=== PATIENT | female | born 1965 | race Caucasian/White ===

== ENCOUNTER 2017-12-07 21:16 | Inpatient (IN) | payer OTHER ==
[2017-12-08 01:40] LABS: ADD MAN DIFF? NO
[2017-12-08 01:42] LABS: BASOPHIL # 0.1 10^3/ul (0.0-0.1); BASOPHILS % 0.4 % (0.0-2.0); EOSINOPHILS # 0.3 10^3/ul (0.0-0.5); EOSINOPHILS % 1.5 % (0.0-7.0); HEMATOCRIT 35.9 % (37.0-47.0); HEMOGLOBIN 12.4 g/dl (12.0-16.0); LYMPHOCYTES % 11.8 % (15.0-51.0); MEAN CORPUSCULAR HGB CONC 34.5 g/dl (32.0-37.0); MEAN CORPUSCULAR VOLUME 89.8 fl (82.0-101.0); MEAN PLATELET VOLUME 10.6 fl (7.4-10.4); MONOCYTE # 1.4 10^3/ul (0.3-0.9); MONOCYTES % 8.4 % (0.0-11.0); NEUTROPHILS % 77.2 % (39.0-77.0); PLATELET COUNT 404 10^3/UL (140-415); RED CELL DISTRIBUTION WIDTH 12.9 % (11.5-14.5)
[2017-12-08 01:42] LABS: WHITE BLOOD COUNT 16.8 10^3/ul (4.8-10.8)
[2017-12-08 02:04] LABS: ALANINE AMINOTRANSFERASE 27 IU/L (13-69); ALBUMIN 4.3 g/dl (3.3-4.9); ALBUMIN/GLOBULIN RATIO 1.07; ALKALINE PHOSPHATASE 116 IU/L (42-121); ANION GAP 13 (8-16); ASPARTATE AMINO TRANSFERASE 17 IU/L (15-46); BILIRUBIN,INDIRECT 0.6 mg/dl (0-1.1); BILIRUBIN,TOTAL 0.6 mg/dl (0.2-1.3); BLOOD UREA NITROGEN 17 mg/dl (7-20); CALCIUM 9.7 mg/dl (8.4-10.2); CARBON DIOXIDE 23 mmol/L (21-31); CHLORIDE 102 mmol/L (97-110); CREATININE 0.79 mg/dl (0.44-1.00); GLUCOSE 159 mg/dl (70-220); POTASSIUM 4.3 mmol/L (3.5-5.1); SODIUM 134 mmol/L (135-144); TOTAL PROTEIN 8.3 g/dl (6.1-8.1)
[2017-12-08 02:05] LABS: ACETAMINOPHEN < 10.0 ug/ml (10.0-30.0); ETHANOL < 10.0 mg/dl
[2017-12-08 02:39] LABS: URINE BLOOD (Dip) POC Negative (NEGATIVE); URINE GLUCOSE (Dip) POC Negative (NEGATIVE); URINE KETONES (Dip) POC Trace (NEGATIVE); URINE LEUKOCYTE EST (Dip) POC Negative (NEGATIVE); URINE NITRITE (Dip) POC Negative (NEGATIVE); URINE TOTAL PROTEIN POC 2+ (NEGATIVE)
[2017-12-08 02:39] LABS: URINE PH (Dip) POC 5.5 (5.0-8.5)
[2017-12-08 03:14] LABS: ADD UMIC YES; UR ASCORBIC ACID NEGATIVE (NEGATIVE); UR BILIRUBIN (Dip) NEGATIVE (NEGATIVE); UR BLOOD (Dip) NEGATIVE (NEGATIVE); UR CLARITY SLIGHTLY CLOUDY (CLEAR); UR COLOR AMBER (YELLOW); UR GLUCOSE (Dip) NEGATIVE (NEGATIVE); UR KETONES (Dip) NEGATIVE (NEGATIVE); UR LEUKOCYTE ESTERASE (Dip) NEGATIVE Leu/ul (NEGATIVE); UR MUCUS FEW /HPF (NONE SEEN); UR NITRITE (Dip) NEGATIVE (NEGATIVE); UR RBC 1 /HPF (0-5); UR SPECIFIC GRAVITY (Dip) 1.028 (1.003-1.030); UR SQUAMOUS EPITHELIAL CELL FEW /HPF (FEW); UR TOTAL PROTEIN (Dip) 2+ mg/dl (NEGATIVE); UR UROBILINOGEN (Dip) 2+ mg/dL (NEGATIVE); UR WBC 2 /HPF (0-5)
[2017-12-08] MEDS: ONDANSETRON 4 MG INJ IV ×2 (04:33→14:38)
[2017-12-08] MEDS: morphine 4 MG/ML VIAL IV (04:33)
[2017-12-08 04:39] LABS: BENZODIAZEPINES Positive (NEGATIVE); CANNABINOIDS Negative (NEGATIVE)
[2017-12-08 04:44] LABS: BARBITURATES Negative (NEGATIVE); COCAINE Negative (NEGATIVE); OPIATES Positive (NEGATIVE)
[2017-12-08 04:53] LABS: AMPHETAMINE/METHAMPHETAMINE POSITIVE (NEGATIVE)
[2017-12-08] MEDS: SOD CHLORIDE 0.9% 500 ML IV (04:59)
[2017-12-08] MEDS: HYDROmorphONE 1 MG/ML SYG IV (04:59)
[2017-12-08 05:24] LABS: INR 0.85; PROTIME 11.7 Sec (11.9-14.9); PT RATIO 0.9
[2017-12-08 05:25] LABS: PARTIAL THROMBOPLASTIN TIME 29.5 Sec (25.0-35.0)
[2017-12-08] MEDS ORDERED: HYDROCODONE/APAP (5/325) TAB PO ×2 (06:00)
[2017-12-08] MEDS ORDERED: NACL 0.9% 3 ML SYG IV (06:00)
[2017-12-08] MEDS ORDERED: ALBUTEROL/IPRATROPIUM (NEB) 3 ML AMP HHN (06:00)
[2017-12-08 06:17] LABS: LIPASE 243 U/L (23-300)
[2017-12-08 07:10] LABS: ALANINE AMINOTRANSFERASE 26 IU/L (13-69); ALBUMIN 3.5 g/dl (3.3-4.9); ALBUMIN/GLOBULIN RATIO 0.94; ALKALINE PHOSPHATASE 95 IU/L (42-121); ANION GAP 13 (8-16); ASPARTATE AMINO TRANSFERASE 15 IU/L (15-46); BILIRUBIN,INDIRECT 0.5 mg/dl (0-1.1); BILIRUBIN,TOTAL 0.5 mg/dl (0.2-1.3); BLOOD UREA NITROGEN 17 mg/dl (7-20); CALCIUM 8.8 mg/dl (8.4-10.2); CARBON DIOXIDE 22 mmol/L (21-31); CHLORIDE 104 mmol/L (97-110); CREATININE 0.76 mg/dl (0.44-1.00); GLUCOSE 127 mg/dl (70-220); POTASSIUM 4.3 mmol/L (3.5-5.1); SODIUM 135 mmol/L (135-144); TOTAL PROTEIN 7.2 g/dl (6.1-8.1)
[2017-12-08] MEDS: FUROSEMIDE 40 MG TAB PO (08:33)
[2017-12-08] MEDS: LISINOPRIL 10 MG TAB PO (08:33)
[2017-12-08] MEDS: LEVOFLOXACIN 500MG/D5W (PMX) 100 ML IVPB (08:34)
[2017-12-08] MEDS: FAMOTIDINE 20 MG TAB PO ×2 (08:35→20:46)
[2017-12-08] MEDS: morphine 2 MG INJ IV ×2 (10:08→15:23)
[2017-12-08] MEDS: LOSARTAN 25 MG TAB PO (20:46)
[2017-12-08] MEDS: ATORVASTATIN 20 MG TAB PO (20:46)
[2017-12-08] MEDS: QUETIAPINE 25 MG TAB PO (20:47)
[2017-12-08] MEDS: ACETAMINOPHEN 325 MG TAB PO (20:51)
[2017-12-08] MEDS ORDERED: D5W-0.45 NACL + KCL 20 MEQ 1,000 ML IV (22:00)
[2017-12-08] MEDS: D5W-0.45 NACL + KCL 20 MEQ 1,000 ML IV (23:56)
[2017-12-09] MEDS: morphine 2 MG INJ IV (03:54)
[2017-12-09 05:51] LABS: ADD MAN DIFF? NO
[2017-12-09 06:01] LABS: BASOPHIL # 0.1 10^3/ul (0.0-0.1); BASOPHILS % 0.7 % (0.0-2.0); EOSINOPHILS # 0.3 10^3/ul (0.0-0.5); EOSINOPHILS % 3.7 % (0.0-7.0); HEMATOCRIT 32.1 % (37.0-47.0); HEMOGLOBIN 10.5 g/dl (12.0-16.0); LYMPHOCYTES # 1.8 10^3/ul (0.8-2.9); LYMPHOCYTES % 22.6 % (15.0-51.0); MEAN CORPUSCULAR HEMOGLOBIN 30.2 pg (29.0-33.0); MEAN CORPUSCULAR HGB CONC 32.7 g/dl (32.0-37.0); MEAN CORPUSCULAR VOLUME 92.2 fl (82.0-101.0); MEAN PLATELET VOLUME 10.9 fl (7.4-10.4); MONOCYTES % 11.8 % (0.0-11.0); NEUTROPHIL # 4.9 10^3/ul (1.6-7.5); NEUTROPHILS % 60.5 % (39.0-77.0); PLATELET COUNT 318 10^3/UL (140-415); RED BLOOD COUNT 3.48 10^6/ul (4.20-5.40)
[2017-12-09 06:01] LABS: WHITE BLOOD COUNT 8.1 10^3/ul (4.8-10.8)
[2017-12-09 06:49] LABS: ANION GAP 12 (8-16); BLOOD UREA NITROGEN 16 mg/dl (7-20); CARBON DIOXIDE 26 mmol/L (21-31); CHLORIDE 103 mmol/L (97-110); CREATININE 0.95 mg/dl (0.44-1.00); GLUCOSE 129 mg/dl (70-220); MAGNESIUM 1.4 mg/dl (1.7-2.5); PHOSPHORUS 3.5 mg/dl (2.5-4.9); POTASSIUM 3.8 mmol/L (3.5-5.1); SODIUM 137 mmol/L (135-144)
[2017-12-09] MEDS: FAMOTIDINE 20 MG TAB PO (07:47)
[2017-12-09] MEDS: ASPIRIN (EC) 325 MG TAB PO ×3 (07:47→20:49)
[2017-12-09] MEDS: LEVOFLOXACIN 500MG/D5W (PMX) 100 ML IVPB (08:42)
[2017-12-09] MEDS: FUROSEMIDE 40 MG TAB PO (08:43)
[2017-12-09] MEDS: D5W-0.45 NACL + KCL 20 MEQ 1,000 ML IV (08:43)
[2017-12-09] MEDS: LOSARTAN 25 MG TAB PO ×2 (08:43→20:52)
[2017-12-09] MEDS ORDERED: EPINEPHrine 1 MG INJ (09:41)
[2017-12-09] MEDS ORDERED: NORepinephrine 8MG/250 ML (PMX 250 ML IV (11:00)
[2017-12-09] MEDS ORDERED: ONDANSETRON 4 MG INJ (11:04)
[2017-12-09] MEDS ORDERED: ROPIVACAINE 0.5 % 30 ML VIAL (11:04)
[2017-12-09] MEDS ORDERED: MIDAZOLAM 1 MG/ML 2 ML INJ (11:04)
[2017-12-09] MEDS ORDERED: METOCLOPRAMIDE 10 MG INJ (11:04)
[2017-12-09] MEDS ORDERED: FENTAnyl 50 MCG/ML VIAL (11:04)
[2017-12-09] MEDS ORDERED: ETOMIDATE 20 MG INJ (11:04)
[2017-12-09] MEDS ORDERED: morphine SULFATE/PF (10 MG/10 ML) INJ (11:16)
[2017-12-09] MEDS ORDERED: CEFAZOLIN 1 GM INJ (12:00)
[2017-12-09] MEDS: POLYMYXIN/BACITRACIN 1L IRRIG IRR (12:30)
[2017-12-09] MEDS ORDERED: KETOROLAC 30 MG INJ (12:41)
[2017-12-09] MEDS ORDERED: METOPROLOL 5 MG INJ (12:52)
[2017-12-09] MEDS ORDERED: HYDROmorphONE (0.2 MG/ML) 10ML SYG IV ×3 (13:00)
[2017-12-09] MEDS ORDERED: NALOXONE (0.4 MG/ML) INJ IV (13:30)
[2017-12-09] MEDS ORDERED: ZOLPIDEM 5 MG TAB PO (13:30)
[2017-12-09] MEDS ORDERED: NACL 0.9% 3 ML SYG IV (13:30)
[2017-12-09] MEDS: ONDANSETRON 4 MG INJ IV ×3 (13:30→20:52)
[2017-12-09] MEDS: DIPHENHYDRAMINE 50 MG INJ IV (13:52)
[2017-12-09] MEDS: MEPERIDINE 25 MG INJ IV (13:52)
[2017-12-09] MEDS: CEFAZOLIN 1 GM/50 ML (PMX) 50 ML IVPB ×2 (14:00→21:11)
[2017-12-09] MEDS: LORAZEPAM 2 MG INJ IV (14:01)
[2017-12-09] MEDS: MAGNESIUM SULFATE 3 GM in DEXTROSE 5% 100 ML IVPB (15:50)
[2017-12-09] MEDS: DOCUSATE SODIUM 100 MG CAP PO (15:51)
[2017-12-09] MEDS: SOD CHLORIDE 0.9% 1,000 ML IV (15:53)
[2017-12-09] MEDS: GABAPENTIN 100 MG CAP PO (20:49)
[2017-12-09] MEDS: QUETIAPINE 25 MG TAB PO (20:49)
[2017-12-09] MEDS: ATORVASTATIN 20 MG TAB PO (20:50)
[2017-12-09] MEDS: HYDROCODONE/APAP (5/325) TAB PO (21:10)
[2017-12-10] MEDS: D5W-0.45 NACL + KCL 20 MEQ 1,000 ML IV ×3 (00:10→16:00)
[2017-12-10] MEDS: ONDANSETRON 4 MG INJ IV ×2 (01:18→09:24)
[2017-12-10] MEDS: SOD CHLORIDE 0.9% 1,000 ML IV ×2 (01:18→14:05)
[2017-12-10] MEDS: morphine 2 MG INJ IV (05:57)
[2017-12-10] MEDS: PANTOPRAZOLE (EC) 40 MG TAB PO (05:59)
[2017-12-10] MEDS: CEFAZOLIN 1 GM/50 ML (PMX) 50 ML IVPB (06:00)
[2017-12-10 06:09] LABS: ADD MAN DIFF? NO
[2017-12-10 06:41] LABS: ANION GAP 9 (8-16); BLOOD UREA NITROGEN 17 mg/dl (7-20); CALCIUM 8.6 mg/dl (8.4-10.2); CARBON DIOXIDE 25 mmol/L (21-31); CHLORIDE 105 mmol/L (97-110); GLUCOSE 141 mg/dl (70-220); POTASSIUM 4.6 mmol/L (3.5-5.1); SODIUM 134 mmol/L (135-144)
[2017-12-10 06:49] LABS: BASOPHILS % 0.4 % (0.0-2.0); EOSINOPHILS # 0.2 10^3/ul (0.0-0.5); EOSINOPHILS % 2.2 % (0.0-7.0); HEMATOCRIT 28.3 % (37.0-47.0); HEMOGLOBIN 9.4 g/dl (12.0-16.0); LYMPHOCYTES # 1.5 10^3/ul (0.8-2.9); LYMPHOCYTES % 14.4 % (15.0-51.0); MEAN CORPUSCULAR HEMOGLOBIN 31.2 pg (29.0-33.0); MEAN CORPUSCULAR HGB CONC 33.2 g/dl (32.0-37.0); MEAN PLATELET VOLUME 11.2 fl (7.4-10.4); MONOCYTE # 1.2 10^3/ul (0.3-0.9); MONOCYTES % 11.5 % (0.0-11.0); NEUTROPHIL # 7.3 10^3/ul (1.6-7.5); NEUTROPHILS % 70.7 % (39.0-77.0); PLATELET COUNT 277 10^3/UL (140-415); RED BLOOD COUNT 3.01 10^6/ul (4.20-5.40); RED CELL DISTRIBUTION WIDTH 13.3 % (11.5-14.5)
[2017-12-10 06:49] LABS: WHITE BLOOD COUNT 10.3 10^3/ul (4.8-10.8)
[2017-12-10] MEDS: HYDROCODONE/APAP (5/325) TAB PO ×3 (06:59→18:12)
[2017-12-10] MEDS: FUROSEMIDE 40 MG TAB PO (09:24)
[2017-12-10] MEDS: ASPIRIN (EC) 325 MG TAB PO ×2 (09:25→20:20)
[2017-12-10] MEDS: DOCUSATE SODIUM 100 MG CAP PO ×2 (09:25→20:20)
[2017-12-10] MEDS: CELECOXIB 200 MG CAP PO ×2 (09:25→20:21)
[2017-12-10] MEDS: LOSARTAN 25 MG TAB PO ×2 (09:25→20:20)
[2017-12-10] MEDS: GABAPENTIN 100 MG CAP PO ×2 (09:25→20:21)
[2017-12-10] MEDS: LEVOFLOXACIN 500MG/D5W (PMX) 100 ML IVPB (09:26)
[2017-12-10] MEDS: FERROUS FUMARATE (SR) TAB PO ×2 (09:26→20:21)
[2017-12-10] MEDS: ATORVASTATIN 20 MG TAB PO (20:21)
[2017-12-10] MEDS: QUETIAPINE 25 MG TAB PO (20:21)
[2017-12-11] MEDS: D5W-0.45 NACL + KCL 20 MEQ 1,000 ML IV ×2 (02:00→13:24)
[2017-12-11] MEDS: SOD CHLORIDE 0.9% 1,000 ML IV (02:35)
[2017-12-11] MEDS: PANTOPRAZOLE (EC) 40 MG TAB PO (04:50)
[2017-12-11] MEDS: HYDROCODONE/APAP (5/325) TAB PO ×2 (04:52→11:18)
[2017-12-11 05:09] LABS: ADD MAN DIFF? NO
[2017-12-11 05:16] LABS: BASOPHIL # 0.1 10^3/ul (0.0-0.1); BASOPHILS % 0.5 % (0.0-2.0); EOSINOPHILS # 0.3 10^3/ul (0.0-0.5); EOSINOPHILS % 2.7 % (0.0-7.0); HEMATOCRIT 28.1 % (37.0-47.0); HEMOGLOBIN 9.3 g/dl (12.0-16.0); LYMPHOCYTES # 1.6 10^3/ul (0.8-2.9); LYMPHOCYTES % 13.4 % (15.0-51.0); MEAN CORPUSCULAR HEMOGLOBIN 30.7 pg (29.0-33.0); MEAN CORPUSCULAR HGB CONC 33.1 g/dl (32.0-37.0); MEAN CORPUSCULAR VOLUME 92.7 fl (82.0-101.0); MEAN PLATELET VOLUME 10.7 fl (7.4-10.4); MONOCYTE # 1.4 10^3/ul (0.3-0.9); MONOCYTES % 11.6 % (0.0-11.0); NEUTROPHIL # 8.3 10^3/ul (1.6-7.5); NEUTROPHILS % 71.1 % (39.0-77.0); PLATELET COUNT 336 10^3/UL (140-415); RED BLOOD COUNT 3.03 10^6/ul (4.20-5.40)
[2017-12-11 05:16] LABS: WHITE BLOOD COUNT 11.6 10^3/ul (4.8-10.8)
[2017-12-11 05:40] LABS: ANION GAP 11 (8-16); BLOOD UREA NITROGEN 17 mg/dl (7-20); CALCIUM 8.9 mg/dl (8.4-10.2); CARBON DIOXIDE 23 mmol/L (21-31); CHLORIDE 104 mmol/L (97-110); CREATININE 1.22 mg/dl (0.44-1.00); GLUCOSE 147 mg/dl (70-220); POTASSIUM 4.4 mmol/L (3.5-5.1); SODIUM 134 mmol/L (135-144)
[2017-12-11 05:41] LABS: MAGNESIUM 1.6 mg/dl (1.7-2.5)
[2017-12-11] MEDS: oxyCODONE 5 MG TAB PO ×4 (08:23→23:18)
[2017-12-11] MEDS: LOSARTAN 25 MG TAB PO ×2 (09:19→20:33)
[2017-12-11] MEDS: CELECOXIB 200 MG CAP PO ×2 (09:20→20:29)
[2017-12-11] MEDS: FERROUS FUMARATE (SR) TAB PO ×2 (09:20→20:30)
[2017-12-11] MEDS: DOCUSATE SODIUM 100 MG CAP PO ×2 (09:20→20:29)
[2017-12-11] MEDS: FUROSEMIDE 40 MG TAB PO (09:20)
[2017-12-11] MEDS: GABAPENTIN 100 MG CAP PO ×2 (09:21→20:29)
[2017-12-11] MEDS: ASPIRIN (EC) 325 MG TAB PO ×2 (09:21→20:29)
[2017-12-11] MEDS: MAGNESIUM SULFATE 2 GM/50 ML 50 ML IVPB (13:20)
[2017-12-11] MEDS: QUETIAPINE 25 MG TAB PO (20:30)
[2017-12-11] MEDS: ATORVASTATIN 20 MG TAB PO (20:30)
[2017-12-11] MEDS: MAGNESIUM HYDROXIDE 30ML CUP PO (20:43)
[2017-12-11] MEDS: morphine 2 MG INJ IV (21:33)
[2017-12-12 04:58] LABS: ADD MAN DIFF? NO
[2017-12-12 05:02] LABS: WHITE BLOOD COUNT 8.6 10^3/ul (4.8-10.8)
[2017-12-12 05:02] LABS: BASOPHIL # 0.1 10^3/ul (0.0-0.1); BASOPHILS % 0.8 % (0.0-2.0); EOSINOPHILS # 0.4 10^3/ul (0.0-0.5); EOSINOPHILS % 4.7 % (0.0-7.0); HEMATOCRIT 29.6 % (37.0-47.0); HEMOGLOBIN 9.7 g/dl (12.0-16.0); LYMPHOCYTES # 1.8 10^3/ul (0.8-2.9); LYMPHOCYTES % 20.9 % (15.0-51.0); MEAN CORPUSCULAR HEMOGLOBIN 30.6 pg (29.0-33.0); MEAN CORPUSCULAR HGB CONC 32.8 g/dl (32.0-37.0); MEAN CORPUSCULAR VOLUME 93.4 fl (82.0-101.0); MEAN PLATELET VOLUME 10.5 fl (7.4-10.4); MONOCYTES % 11.5 % (0.0-11.0); NEUTROPHIL # 5.3 10^3/ul (1.6-7.5); NEUTROPHILS % 61.4 % (39.0-77.0); PLATELET COUNT 361 10^3/UL (140-415); RED BLOOD COUNT 3.17 10^6/ul (4.20-5.40)
[2017-12-12 05:40] LABS: ANION GAP 10 (8-16); BLOOD UREA NITROGEN 21 mg/dl (7-20); CALCIUM 9.1 mg/dl (8.4-10.2); CARBON DIOXIDE 30 mmol/L (21-31); CHLORIDE 101 mmol/L (97-110); CREATININE 1.24 mg/dl (0.44-1.00); GLUCOSE 146 mg/dl (70-220); POTASSIUM 4.4 mmol/L (3.5-5.1); SODIUM 137 mmol/L (135-144)
[2017-12-12] MEDS: PANTOPRAZOLE (EC) 40 MG TAB PO (06:00)
[2017-12-12] MEDS: FERROUS FUMARATE (SR) TAB PO ×2 (11:20→20:38)
[2017-12-12] MEDS: CELECOXIB 200 MG CAP PO ×2 (11:20→20:38)
[2017-12-12] MEDS: GABAPENTIN 100 MG CAP PO ×2 (11:20→20:38)
[2017-12-12] MEDS: DOCUSATE SODIUM 100 MG CAP PO ×2 (11:20→20:38)
[2017-12-12] MEDS: FUROSEMIDE 40 MG TAB PO (11:21)
[2017-12-12] MEDS: ASPIRIN (EC) 325 MG TAB PO ×2 (11:22→20:39)
[2017-12-12] MEDS: LOSARTAN 25 MG TAB PO ×2 (11:22→20:39)
[2017-12-12] MEDS: SOD CHLORIDE 0.9% 1,000 ML IV (11:22)
[2017-12-12] MEDS: oxyCODONE 5 MG TAB PO ×2 (12:32→15:34)
[2017-12-12] MEDS: HYDROCODONE/APAP (5/325) TAB PO (17:31)
[2017-12-12] MEDS: QUETIAPINE 25 MG TAB PO (20:38)
[2017-12-12] MEDS: ATORVASTATIN 20 MG TAB PO (20:38)
[2017-12-12] MEDS: MAGNESIUM HYDROXIDE 30ML CUP PO (20:40)
[2017-12-13] MEDS: SOD CHLORIDE 0.9% 1,000 ML IV ×2 (02:42→12:40)
[2017-12-13] MEDS: PANTOPRAZOLE (EC) 40 MG TAB PO (05:25)
[2017-12-13] MEDS: NA PHOSPHATE/BIPHOS 133 ML ENEMA PR (05:25)
[2017-12-13 05:30] LABS: ADD MAN DIFF? NO
[2017-12-13 05:40] LABS: BASOPHIL # 0.1 10^3/ul (0.0-0.1); EOSINOPHILS # 0.4 10^3/ul (0.0-0.5); EOSINOPHILS % 5.2 % (0.0-7.0); HEMATOCRIT 24.8 % (37.0-47.0); HEMOGLOBIN 8.4 g/dl (12.0-16.0); LYMPHOCYTES # 1.6 10^3/ul (0.8-2.9); LYMPHOCYTES % 22.2 % (15.0-51.0); MEAN CORPUSCULAR HEMOGLOBIN 31.6 pg (29.0-33.0); MEAN CORPUSCULAR HGB CONC 33.9 g/dl (32.0-37.0); MEAN CORPUSCULAR VOLUME 93.2 fl (82.0-101.0); MEAN PLATELET VOLUME 10.5 fl (7.4-10.4); MONOCYTES % 13.1 % (0.0-11.0); NEUTROPHIL # 4.3 10^3/ul (1.6-7.5); NEUTROPHILS % 58.1 % (39.0-77.0); PLATELET COUNT 362 10^3/UL (140-415); RED BLOOD COUNT 2.66 10^6/ul (4.20-5.40); RED CELL DISTRIBUTION WIDTH 12.9 % (11.5-14.5)
[2017-12-13 05:40] LABS: WHITE BLOOD COUNT 7.3 10^3/ul (4.8-10.8)
[2017-12-13 06:44] LABS: ANION GAP 12 (8-16); BLOOD UREA NITROGEN 26 mg/dl (7-20); CALCIUM 8.6 mg/dl (8.4-10.2); CARBON DIOXIDE 30 mmol/L (21-31); CHLORIDE 101 mmol/L (97-110); CREATININE 1.02 mg/dl (0.44-1.00); GLUCOSE 143 mg/dl (70-220); POTASSIUM 4.6 mmol/L (3.5-5.1); SODIUM 138 mmol/L (135-144)
[2017-12-13] MEDS: CELECOXIB 200 MG CAP PO ×2 (08:18→21:02)
[2017-12-13] MEDS: ASPIRIN (EC) 325 MG TAB PO ×2 (08:19→21:02)
[2017-12-13] MEDS: LOSARTAN 25 MG TAB PO ×2 (08:19→21:04)
[2017-12-13] MEDS: FERROUS FUMARATE (SR) TAB PO ×2 (08:20→21:02)
[2017-12-13] MEDS: FUROSEMIDE 40 MG TAB PO (08:21)
[2017-12-13] MEDS: GABAPENTIN 100 MG CAP PO ×2 (08:21→21:02)
[2017-12-13] MEDS: oxyCODONE 5 MG TAB PO ×5 (09:09→21:01)
[2017-12-13] MEDS: DIPHENHYDRAMINE 50 MG INJ IV (11:15)
[2017-12-13 14:23] LABS: HAAIG REFLEX REFLEX FILED
[2017-12-13 15:04] LABS: HEPATITIS B SURFACE ANTIGEN NEGATIVE (NEGATIVE)
[2017-12-13 15:22] LABS: HEPATITIS B CORE ANTIBODY NEGATIVE (NEGATIVE)
[2017-12-13 15:23] LABS: HEPATITIS C VIRAL ANTIBODY REACTIVE (NEGATIVE)
[2017-12-13 18:16] LABS: ADD UMIC YES; UR ASCORBIC ACID NEGATIVE (NEGATIVE); UR BILIRUBIN (Dip) NEGATIVE (NEGATIVE); UR BLOOD (Dip) 2+ mg/dL (NEGATIVE); UR CLARITY CLEAR (CLEAR); UR COLOR YELLOW (YELLOW); UR GLUCOSE (Dip) NEGATIVE (NEGATIVE); UR KETONES (Dip) NEGATIVE (NEGATIVE); UR LEUKOCYTE ESTERASE (Dip) 1+ Leu/ul (NEGATIVE); UR NITRITE (Dip) NEGATIVE (NEGATIVE); UR RBC 12 /HPF (0-5); UR SPECIFIC GRAVITY (Dip) 1.011 (1.003-1.030); UR TOTAL PROTEIN (Dip) 1+ mg/dl (NEGATIVE); UR UROBILINOGEN (Dip) NEGATIVE (NEGATIVE); UR WBC 15 /HPF (0-5)
[2017-12-13] MEDS: ATORVASTATIN 20 MG TAB PO (21:01)
[2017-12-13] MEDS: QUETIAPINE 25 MG TAB PO (21:02)
[2017-12-13] MEDS: SENNA/DOCUSATE NA (8.6MG/50MG) TAB PO (21:18)
[2017-12-14 05:03] LABS: ADD MAN DIFF? NO
[2017-12-14 05:10] LABS: WHITE BLOOD COUNT 10.4 10^3/ul (4.8-10.8)
[2017-12-14 05:10] LABS: BASOPHILS % 0.4 % (0.0-2.0); EOSINOPHILS # 0.3 10^3/ul (0.0-0.5); HEMATOCRIT 25.4 % (37.0-47.0); HEMOGLOBIN 8.5 g/dl (12.0-16.0); LYMPHOCYTES # 1.5 10^3/ul (0.8-2.9); LYMPHOCYTES % 13.9 % (15.0-51.0); MEAN CORPUSCULAR HEMOGLOBIN 31.5 pg (29.0-33.0); MEAN CORPUSCULAR HGB CONC 33.5 g/dl (32.0-37.0); MEAN CORPUSCULAR VOLUME 94.1 fl (82.0-101.0); MEAN PLATELET VOLUME 10.2 fl (7.4-10.4); MONOCYTE # 1.1 10^3/ul (0.3-0.9); MONOCYTES % 10.6 % (0.0-11.0); NEUTROPHIL # 7.5 10^3/ul (1.6-7.5); NEUTROPHILS % 71.6 % (39.0-77.0); PLATELET COUNT 408 10^3/UL (140-415); RED CELL DISTRIBUTION WIDTH 12.7 % (11.5-14.5)
[2017-12-14 05:43] LABS: ANION GAP 12 (8-16); BLOOD UREA NITROGEN 26 mg/dl (7-20); CALCIUM 8.8 mg/dl (8.4-10.2); CARBON DIOXIDE 32 mmol/L (21-31); CHLORIDE 99 mmol/L (97-110); CREATININE 0.99 mg/dl (0.44-1.00); GLUCOSE 136 mg/dl (70-220); POTASSIUM 4.3 mmol/L (3.5-5.1); SODIUM 139 mmol/L (135-144)
[2017-12-14] MEDS: PANTOPRAZOLE (EC) 40 MG TAB PO (06:26)
[2017-12-14] MEDS: oxyCODONE 5 MG TAB PO ×6 (07:23→22:10)
[2017-12-14] MEDS: CELECOXIB 200 MG CAP PO ×2 (07:24→22:08)
[2017-12-14] MEDS: FUROSEMIDE 40 MG TAB PO (07:25)
[2017-12-14] MEDS: GABAPENTIN 100 MG CAP PO ×2 (07:25→22:10)
[2017-12-14] MEDS: ASPIRIN (EC) 325 MG TAB PO ×2 (07:25→22:08)
[2017-12-14] MEDS: LOSARTAN 25 MG TAB PO ×2 (07:26→22:10)
[2017-12-14] MEDS: FERROUS FUMARATE (SR) TAB PO ×2 (07:26→22:08)
[2017-12-14] MEDS: SENNA/DOCUSATE NA (8.6MG/50MG) TAB PO (07:26)
[2017-12-14] MEDS: POLYETHYLENE GLYCOL 17 GM PACKET PO ×2 (16:26→22:08)
[2017-12-14] MEDS: traMADol 50 MG TAB PO (19:54)
[2017-12-14] MEDS: ATORVASTATIN 20 MG TAB PO (22:08)
[2017-12-14] MEDS: QUETIAPINE 25 MG TAB PO (22:09)
[2017-12-15] MEDS: traMADol 50 MG TAB PO ×2 (00:14→11:33)
[2017-12-15] MEDS: BETHANECHOL 25 MG TAB PO (00:14)
[2017-12-15 05:29] LABS: ADD MAN DIFF? NO
[2017-12-15 05:37] LABS: BASOPHIL # 0.1 10^3/ul (0.0-0.1); BASOPHILS % 0.8 % (0.0-2.0); EOSINOPHILS # 0.4 10^3/ul (0.0-0.5); HEMATOCRIT 24.2 % (37.0-47.0); HEMOGLOBIN 8.2 g/dl (12.0-16.0); LYMPHOCYTES # 1.9 10^3/ul (0.8-2.9); LYMPHOCYTES % 24.4 % (15.0-51.0); MEAN CORPUSCULAR HEMOGLOBIN 31.1 pg (29.0-33.0); MEAN CORPUSCULAR HGB CONC 33.9 g/dl (32.0-37.0); MEAN CORPUSCULAR VOLUME 91.7 fl (82.0-101.0); MEAN PLATELET VOLUME 10.1 fl (7.4-10.4); MONOCYTE # 1.1 10^3/ul (0.3-0.9); MONOCYTES % 14.4 % (0.0-11.0); NEUTROPHIL # 4.2 10^3/ul (1.6-7.5); NEUTROPHILS % 54.6 % (39.0-77.0); PLATELET COUNT 429 10^3/UL (140-415); RED BLOOD COUNT 2.64 10^6/ul (4.20-5.40); RED CELL DISTRIBUTION WIDTH 12.6 % (11.5-14.5)
[2017-12-15 05:37] LABS: WHITE BLOOD COUNT 7.6 10^3/ul (4.8-10.8)
[2017-12-15 06:03] LABS: ANION GAP 11 (8-16); BLOOD UREA NITROGEN 25 mg/dl (7-20); CALCIUM 8.8 mg/dl (8.4-10.2); CARBON DIOXIDE 34 mmol/L (21-31); CHLORIDE 95 mmol/L (97-110); CREATININE 1.18 mg/dl (0.44-1.00); GLUCOSE 120 mg/dl (70-220); POTASSIUM 4.3 mmol/L (3.5-5.1); SODIUM 136 mmol/L (135-144)
[2017-12-15] MEDS: PANTOPRAZOLE (EC) 40 MG TAB PO (06:25)
[2017-12-15] MEDS: SENNA/DOCUSATE NA (8.6MG/50MG) TAB PO (06:25)
[2017-12-15] MEDS: LOSARTAN 25 MG TAB PO ×2 (08:38→20:38)
[2017-12-15] MEDS: FERROUS FUMARATE (SR) TAB PO ×2 (08:38→20:36)
[2017-12-15] MEDS: POLYETHYLENE GLYCOL 17 GM PACKET PO ×2 (08:39→20:38)
[2017-12-15] MEDS: FUROSEMIDE 40 MG TAB PO (08:39)
[2017-12-15] MEDS: CELECOXIB 200 MG CAP PO ×2 (08:39→20:36)
[2017-12-15] MEDS: ASPIRIN (EC) 325 MG TAB PO ×2 (08:39→20:36)
[2017-12-15] MEDS: GABAPENTIN 100 MG CAP PO ×2 (08:39→20:36)
[2017-12-15] MEDS: MAGNESIUM HYDROXIDE 30ML CUP PO (14:10)
[2017-12-15] MEDS: oxyCODONE 5 MG TAB PO ×2 (14:58→18:24)
[2017-12-15] MEDS: ENOXAPARIN 40 MG/0.4 ML SYG SC (15:02)
[2017-12-15] MEDS: CEFTRIAXONE 1 GM/50 ML (PMX) 50 ML IVPB (15:02)
[2017-12-15] MEDS: QUETIAPINE 25 MG TAB PO (20:37)
[2017-12-15] MEDS: ATORVASTATIN 20 MG TAB PO (20:37)
[2017-12-16] MEDS: SENNA/DOCUSATE NA (8.6MG/50MG) TAB PO (05:09)
[2017-12-16] MEDS: PANTOPRAZOLE (EC) 40 MG TAB PO (05:09)
[2017-12-16] MEDS: oxyCODONE 5 MG TAB PO ×4 (05:10→20:14)
[2017-12-16 05:52] LABS: ADD MAN DIFF? NO
[2017-12-16 06:10] LABS: BASOPHIL # 0.1 10^3/ul (0.0-0.1); BASOPHILS % 0.8 % (0.0-2.0); EOSINOPHILS # 0.4 10^3/ul (0.0-0.5); EOSINOPHILS % 5.1 % (0.0-7.0); HEMATOCRIT 26.6 % (37.0-47.0); HEMOGLOBIN 8.7 g/dl (12.0-16.0); LYMPHOCYTES # 1.6 10^3/ul (0.8-2.9); LYMPHOCYTES % 21.8 % (15.0-51.0); MEAN CORPUSCULAR HEMOGLOBIN 30.9 pg (29.0-33.0); MEAN CORPUSCULAR HGB CONC 32.7 g/dl (32.0-37.0); MEAN CORPUSCULAR VOLUME 94.3 fl (82.0-101.0); MEAN PLATELET VOLUME 10.3 fl (7.4-10.4); MONOCYTE # 1.1 10^3/ul (0.3-0.9); MONOCYTES % 14.7 % (0.0-11.0); NEUTROPHIL # 4.2 10^3/ul (1.6-7.5); NEUTROPHILS % 56.7 % (39.0-77.0); PLATELET COUNT 449 10^3/UL (140-415); RED BLOOD COUNT 2.82 10^6/ul (4.20-5.40); RED CELL DISTRIBUTION WIDTH 12.6 % (11.5-14.5)
[2017-12-16 06:10] LABS: WHITE BLOOD COUNT 7.4 10^3/ul (4.8-10.8)
[2017-12-16 06:47] LABS: ANION GAP 12 (8-16); BLOOD UREA NITROGEN 32 mg/dl (7-20); CALCIUM 8.8 mg/dl (8.4-10.2); CARBON DIOXIDE 34 mmol/L (21-31); CHLORIDE 95 mmol/L (97-110); CREATININE 1.17 mg/dl (0.44-1.00); GLUCOSE 111 mg/dl (70-220); POTASSIUM 4.1 mmol/L (3.5-5.1); SODIUM 137 mmol/L (135-144)
[2017-12-16] MEDS: CELECOXIB 200 MG CAP PO ×2 (08:57→20:12)
[2017-12-16] MEDS: ASPIRIN (EC) 325 MG TAB PO ×2 (08:57→20:13)
[2017-12-16] MEDS: LOSARTAN 25 MG TAB PO (08:57)
[2017-12-16] MEDS: GABAPENTIN 100 MG CAP PO ×2 (08:57→20:13)
[2017-12-16] MEDS: FERROUS FUMARATE (SR) TAB PO ×2 (08:58→20:12)
[2017-12-16] MEDS: POLYETHYLENE GLYCOL 17 GM PACKET PO ×2 (08:59→20:14)
[2017-12-16] MEDS: ENOXAPARIN 40 MG/0.4 ML SYG SC (09:01)
[2017-12-16] MEDS: traMADol 50 MG TAB PO (11:32)
[2017-12-16] MEDS: CEFTRIAXONE 1 GM/50 ML (PMX) 50 ML IVPB (15:04)
[2017-12-16] MEDS: ATORVASTATIN 20 MG TAB PO (20:12)
[2017-12-16] MEDS: QUETIAPINE 25 MG TAB PO (20:24)
[2017-12-17] MEDS: oxyCODONE 5 MG TAB PO ×5 (01:49→20:19)
[2017-12-17 05:17] LABS: ANION GAP 12 (8-16); BLOOD UREA NITROGEN 30 mg/dl (7-20); CALCIUM 9.1 mg/dl (8.4-10.2); CARBON DIOXIDE 33 mmol/L (21-31); CHLORIDE 97 mmol/L (97-110); GLUCOSE 124 mg/dl (70-220); POTASSIUM 4.6 mmol/L (3.5-5.1); SODIUM 137 mmol/L (135-144)
[2017-12-17] MEDS: PANTOPRAZOLE (EC) 40 MG TAB PO (05:35)
[2017-12-17] MEDS: CELECOXIB 200 MG CAP PO ×2 (09:31→20:18)
[2017-12-17] MEDS: ASPIRIN (EC) 325 MG TAB PO ×2 (09:31→20:18)
[2017-12-17] MEDS: GABAPENTIN 100 MG CAP PO ×2 (09:31→20:19)
[2017-12-17] MEDS: FERROUS FUMARATE (SR) TAB PO ×2 (09:32→20:19)
[2017-12-17] MEDS: LOSARTAN 25 MG TAB PO (09:32)
[2017-12-17] MEDS: POLYETHYLENE GLYCOL 17 GM PACKET PO ×2 (09:32→20:21)
[2017-12-17] MEDS: ENOXAPARIN 40 MG/0.4 ML SYG SC (09:36)
[2017-12-17] MEDS: CEFTRIAXONE 1 GM/50 ML (PMX) 50 ML IVPB (15:03)
[2017-12-17] MEDS: ATORVASTATIN 20 MG TAB PO (20:18)
[2017-12-17] MEDS: QUETIAPINE 25 MG TAB PO (20:20)
[2017-12-18] MEDS: oxyCODONE 5 MG TAB PO ×3 (05:00→20:35)
[2017-12-18 05:20] LABS: ADD MAN DIFF? NO
[2017-12-18 05:29] LABS: WHITE BLOOD COUNT 7.6 10^3/ul (4.8-10.8)
[2017-12-18 05:29] LABS: BASOPHIL # 0.1 10^3/ul (0.0-0.1); EOSINOPHILS # 0.3 10^3/ul (0.0-0.5); EOSINOPHILS % 4.5 % (0.0-7.0); HEMATOCRIT 27.3 % (37.0-47.0); HEMOGLOBIN 8.8 g/dl (12.0-16.0); LYMPHOCYTES # 2.1 10^3/ul (0.8-2.9); LYMPHOCYTES % 26.9 % (15.0-51.0); MEAN CORPUSCULAR HEMOGLOBIN 30.8 pg (29.0-33.0); MEAN CORPUSCULAR HGB CONC 32.2 g/dl (32.0-37.0); MEAN CORPUSCULAR VOLUME 95.5 fl (82.0-101.0); MEAN PLATELET VOLUME 10.3 fl (7.4-10.4); MONOCYTE # 1.1 10^3/ul (0.3-0.9); MONOCYTES % 13.8 % (0.0-11.0); NEUTROPHILS % 52.9 % (39.0-77.0); PLATELET COUNT 471 10^3/UL (140-415); RED BLOOD COUNT 2.86 10^6/ul (4.20-5.40); RED CELL DISTRIBUTION WIDTH 12.5 % (11.5-14.5)
[2017-12-18 05:51] LABS: ANION GAP 12 (8-16); BLOOD UREA NITROGEN 24 mg/dl (7-20); CALCIUM 9.4 mg/dl (8.4-10.2); CARBON DIOXIDE 33 mmol/L (21-31); CHLORIDE 101 mmol/L (97-110); CREATININE 0.99 mg/dl (0.44-1.00); GLUCOSE 115 mg/dl (70-220); POTASSIUM 4.3 mmol/L (3.5-5.1); SODIUM 142 mmol/L (135-144)
[2017-12-18] MEDS: PANTOPRAZOLE (EC) 40 MG TAB PO (06:09)
[2017-12-18] MEDS: HYDROCODONE/APAP (5/325) TAB PO (06:35)
[2017-12-18] MEDS: POLYETHYLENE GLYCOL 17 GM PACKET PO ×2 (08:42→20:37)
[2017-12-18] MEDS: ENOXAPARIN 40 MG/0.4 ML SYG SC (08:42)
[2017-12-18] MEDS: GABAPENTIN 100 MG CAP PO ×2 (08:43→20:36)
[2017-12-18] MEDS: LOSARTAN 25 MG TAB PO (08:43)
[2017-12-18] MEDS: FERROUS FUMARATE (SR) TAB PO ×2 (08:43→20:35)
[2017-12-18] MEDS: CELECOXIB 200 MG CAP PO ×2 (08:43→20:35)
[2017-12-18] MEDS: ASPIRIN (EC) 325 MG TAB PO ×2 (08:44→20:35)
[2017-12-18] MEDS: CEFTRIAXONE 1 GM/50 ML (PMX) 50 ML IVPB (13:46)
[2017-12-18] MEDS: SENNA/DOCUSATE NA (8.6MG/50MG) TAB PO (14:39)
[2017-12-18] MEDS: BISACODYL 10 MG SUPP PR (14:40)
[2017-12-18 19:44] LABS: TROPONIN-I < 0.012 ng/ml (0.00-0.12)
[2017-12-18] MEDS: ATORVASTATIN 20 MG TAB PO (20:35)
[2017-12-18] MEDS: QUETIAPINE 25 MG TAB PO (20:36)
[2017-12-19] MEDS: oxyCODONE 5 MG TAB PO ×3 (00:51→08:45)
[2017-12-19 01:43] LABS: TROPONIN-I < 0.012 ng/ml (0.00-0.12)
[2017-12-19] MEDS: HYDROCODONE/APAP (5/325) TAB PO (03:10)
[2017-12-19] MEDS: PANTOPRAZOLE (EC) 40 MG TAB PO (05:24)
[2017-12-19 06:54] LABS: TROPONIN-I < 0.012 ng/ml (0.00-0.12)
[2017-12-19] MEDS: CELECOXIB 200 MG CAP PO ×2 (08:41→20:41)
[2017-12-19] MEDS: FERROUS FUMARATE (SR) TAB PO ×2 (08:41→20:41)
[2017-12-19] MEDS: LOSARTAN 25 MG TAB PO (08:41)
[2017-12-19] MEDS: GABAPENTIN 100 MG CAP PO ×2 (08:41→20:41)
[2017-12-19] MEDS: ASPIRIN (EC) 325 MG TAB PO ×2 (08:41→20:41)
[2017-12-19] MEDS: POLYETHYLENE GLYCOL 17 GM PACKET PO ×2 (08:42→20:41)
[2017-12-19] MEDS: ENOXAPARIN 40 MG/0.4 ML SYG SC (08:51)
[2017-12-19] MEDS: CEFTRIAXONE 1 GM/50 ML (PMX) 50 ML IVPB (14:12)
[2017-12-19] MEDS: ATORVASTATIN 20 MG TAB PO (20:41)
[2017-12-19] MEDS: LACTOBACILLUS RHAMNOSUS CAP PO (20:41)
[2017-12-19] MEDS: QUETIAPINE 25 MG TAB PO (20:41)
[2017-12-19] MEDS: morphine 2 MG INJ IV (22:27)
[2017-12-20 05:54] LABS: ADD MAN DIFF? NO
[2017-12-20 05:56] LABS: BASOPHIL # 0.1 10^3/ul (0.0-0.1); BASOPHILS % 1.1 % (0.0-2.0); EOSINOPHILS # 0.5 10^3/ul (0.0-0.5); EOSINOPHILS % 5.6 % (0.0-7.0); HEMATOCRIT 27.8 % (37.0-47.0); HEMOGLOBIN 9.1 g/dl (12.0-16.0); LYMPHOCYTES # 1.8 10^3/ul (0.8-2.9); LYMPHOCYTES % 22.8 % (15.0-51.0); MEAN CORPUSCULAR HEMOGLOBIN 30.8 pg (29.0-33.0); MEAN CORPUSCULAR HGB CONC 32.7 g/dl (32.0-37.0); MEAN CORPUSCULAR VOLUME 94.2 fl (82.0-101.0); MEAN PLATELET VOLUME 10.6 fl (7.4-10.4); MONOCYTE # 0.8 10^3/ul (0.3-0.9); MONOCYTES % 9.6 % (0.0-11.0); NEUTROPHIL # 4.8 10^3/ul (1.6-7.5); NEUTROPHILS % 59.8 % (39.0-77.0); PLATELET COUNT 466 10^3/UL (140-415); RED BLOOD COUNT 2.95 10^6/ul (4.20-5.40)
[2017-12-20 06:58] LABS: ALANINE AMINOTRANSFERASE 49 IU/L (13-69); ALBUMIN 3.8 g/dl (3.3-4.9); ALBUMIN/GLOBULIN RATIO 1.02; ALKALINE PHOSPHATASE 291 IU/L (42-121); ANION GAP 18 (8-16); ASPARTATE AMINO TRANSFERASE 32 IU/L (15-46); BLOOD UREA NITROGEN 19 mg/dl (7-20); CALCIUM 9.6 mg/dl (8.4-10.2); CARBON DIOXIDE 31 mmol/L (21-31); CHLORIDE 100 mmol/L (97-110); CREATININE 0.91 mg/dl (0.44-1.00); GLUCOSE 103 mg/dl (70-220); MAGNESIUM 1.9 mg/dl (1.7-2.5); PHOSPHORUS 5.4 mg/dl (2.5-4.9); POTASSIUM 4.5 mmol/L (3.5-5.1); SODIUM 144 mmol/L (135-144); TOTAL PROTEIN 7.5 g/dl (6.1-8.1)
[2017-12-20] MEDS: ASPIRIN (EC) 325 MG TAB PO ×2 (09:49→19:53)
[2017-12-20] MEDS: LACTOBACILLUS RHAMNOSUS CAP PO ×2 (09:49→19:53)
[2017-12-20] MEDS: GABAPENTIN 100 MG CAP PO ×2 (09:49→19:53)
[2017-12-20] MEDS: FERROUS FUMARATE (SR) TAB PO ×2 (09:49→19:53)
[2017-12-20] MEDS: CELECOXIB 200 MG CAP PO ×2 (09:49→19:53)
[2017-12-20] MEDS: LOSARTAN 25 MG TAB PO (09:50)
[2017-12-20] MEDS: POLYETHYLENE GLYCOL 17 GM PACKET PO ×2 (09:50→19:54)
[2017-12-20] MEDS: ENOXAPARIN 40 MG/0.4 ML SYG SC (09:51)
[2017-12-20] MEDS: oxyCODONE 5 MG TAB PO ×3 (09:52→19:52)
[2017-12-20] MEDS: SENNA/DOCUSATE NA (8.6MG/50MG) TAB PO (19:52)
[2017-12-20] MEDS: ATORVASTATIN 20 MG TAB PO (19:53)
[2017-12-20] MEDS: QUETIAPINE 25 MG TAB PO (19:54)
[2017-12-21] MEDS: MAGNESIUM HYDROXIDE 30ML CUP PO (05:15)
[2017-12-21] MEDS: traMADol 50 MG TAB PO (05:15)
[2017-12-21] MEDS: ENOXAPARIN 40 MG/0.4 ML SYG SC ×2 (09:00→09:49)
[2017-12-21] MEDS: LACTOBACILLUS RHAMNOSUS CAP PO ×2 (09:46→19:53)
[2017-12-21] MEDS: GABAPENTIN 100 MG CAP PO ×2 (09:46→19:54)
[2017-12-21] MEDS: FERROUS FUMARATE (SR) TAB PO ×2 (09:46→19:54)
[2017-12-21] MEDS: ASPIRIN (EC) 325 MG TAB PO ×2 (09:46→19:54)
[2017-12-21] MEDS: CELECOXIB 200 MG CAP PO ×2 (09:46→19:54)
[2017-12-21] MEDS: LOSARTAN 25 MG TAB PO (09:47)
[2017-12-21] MEDS: oxyCODONE 5 MG TAB PO ×2 (09:47→14:37)
[2017-12-21] MEDS: POLYETHYLENE GLYCOL 17 GM PACKET PO ×2 (09:48→20:51)
[2017-12-21] MEDS: ATORVASTATIN 20 MG TAB PO (19:54)
[2017-12-21] MEDS: QUETIAPINE 25 MG TAB PO (19:54)
[2017-12-22] MEDS: oxyCODONE 5 MG TAB PO ×3 (00:41→15:43)
[2017-12-22] MEDS: ENOXAPARIN 40 MG/0.4 ML SYG SC (09:00)
[2017-12-22] MEDS: ASPIRIN (EC) 325 MG TAB PO (09:06)
[2017-12-22] MEDS: LACTOBACILLUS RHAMNOSUS CAP PO (09:06)
[2017-12-22] MEDS: CELECOXIB 200 MG CAP PO (09:06)
[2017-12-22] MEDS: FERROUS FUMARATE (SR) TAB PO (09:07)
[2017-12-22] MEDS: GABAPENTIN 100 MG CAP PO (09:07)
[2017-12-22] MEDS: LOSARTAN 25 MG TAB PO (09:07)
[2017-12-22] MEDS: POLYETHYLENE GLYCOL 17 GM PACKET PO (09:08)
== END 2017-12-22 19:30 | DRG 481 ==
LOC: E/R 21:16 → MS1 12-08 05:25
PROC: 0QS634Z Reposition Right Upper Femur with Internal Fixation Device, Percutaneous Approach (ICD-10-PCS; principal; 2017-12-09 11:32)
DX: S72.141A Displaced intertrochanteric fracture of right femur, initial encounter for closed fracture (principal); F23 Brief psychotic disorder; I11.0 Hypertensive heart disease with heart failure; I50.9 Heart failure, unspecified; F29 Unspecified psychosis not due to a substance or known physiological condition; I25.5 Ischemic cardiomyopathy; Z72.0 Tobacco use; X58.XXXA Exposure to other specified factors, initial encounter; Y92.009 Unspecified place in unspecified non-institutional (private) residence as the place of occurrence of the external cause; I25.10 Atherosclerotic heart disease of native coronary artery without angina pectoris; Z59.0 Homelessness; E78.5 Hyperlipidemia, unspecified; N28.9 Disorder of kidney and ureter, unspecified
CPT/HCPCS: 36415; 73500; 73510; 73530; 73550; 80048; 80053; 80306; 80307; 81001; 81003; 82306; 83690; 83735; 84100; 84443; 84484; 84703; 85025; 85610; 85730; 86704; 86709; 86803; 87040; 87086; 87340; 93005; 93306; 96374; 96375; 97110; 97116; 97162; 97530; 97535; 99285-25

== ENCOUNTER → 2018-01-11 | Outpatient (CLI) | payer OTHER | END | disposition home or self-care (01) | LOC: HKI 10:09 | DX: Z09 Encounter for follow-up examination after completed treatment for conditions other than malignant neoplasm (principal); M25.551 Pain in right hip; Z79.82 Long term (current) use of aspirin | CPT/HCPCS: 73502 ==

== ENCOUNTER 2019-05-06 20:06 | Inpatient (IN) | payer OTHER ==
[2019-05-06 21:22] LABS: ANION GAP 9 (5-13); BLOOD UREA NITROGEN 43 mg/dl (7-20); CALCIUM 8.2 mg/dl (8.4-10.2); CARBON DIOXIDE 17 mmol/L (21-31); CHLORIDE 110 mmol/L (97-110); Estimated GFR 52 mL/min (>60); GLUCOSE 147 mg/dl (70-220); POTASSIUM 4.3 mmol/L (3.5-5.1); SODIUM 136 mmol/L (135-144)
[2019-05-06 21:23] LABS: PROTIME 13.3 Sec (11.9-14.9)
[2019-05-06 21:24] LABS: PARTIAL THROMBOPLASTIN TIME 22.2 Sec (23.0-35.0)
[2019-05-06 21:34] LABS: TROPONIN-I < 0.012 ng/ml (0.000-0.120)
[2019-05-06 21:35] LABS: WHITE BLOOD COUNT 14.3 10^3/ul (4.8-10.8)
[2019-05-06 21:35] LABS: ABNORMAL IP MESSAGE 1; HEMATOCRIT 11.2 % (37.0-47.0); MEAN CORPUSCULAR HEMOGLOBIN 32.7 pg (29.0-33.0); MEAN CORPUSCULAR VOLUME 99.1 fl (82.0-101.0); MEAN PLATELET VOLUME 10.9 fl (7.4-10.4); PLATELET COUNT 279 10^3/UL (140-415); RED BLOOD COUNT 1.13 10^6/ul (4.20-5.40); RED CELL DISTRIBUTION WIDTH 15.9 % (11.5-14.5)
[2019-05-06 21:39] LABS: ADD MAN DIFF? YES; HEMOGLOBIN 3.7 g/dl (12.0-16.0); PATH REVIEW? YES; POSITIVE DIFF @See below
[2019-05-06] MEDS ORDERED: FUROSEMIDE 20 MG INJ IV (22:00)
[2019-05-06] MEDS ORDERED: ACETAMINOPHEN 325 MG TAB PO (22:00)
[2019-05-06] MEDS: GABAPENTIN 100 MG CAP PO (22:00)
[2019-05-06] MEDS: SOD CHLORIDE 0.9% 100 ML (22:31)
[2019-05-06] MEDS: IOHEXOL 300MG/ML 150 ML BTL (22:31)
[2019-05-07 01:31] LABS: BAND NEUTROPHILS #M 0.1 10^3/ul (0.0-0.6); BAND NEUTROPHILS % (M) 1 % (0-4); LYMPHOCYTES # 2.3 10^3/ul (0.8-2.9); LYMPHOCYTES #M 2.2 10^3/ul (0.8-2.9); LYMPHOCYTES % (M) 16 % (15-51); MONOCYTE # 0.9 10^3/ul (0.3-0.9); MONOCYTE #M 0.8 10^3/ul (0.3-0.9); MONOCYTES % (M) 6 % (0-11); SEGMENTED NEUTROPHILS (M) % 77 % (39-77)
[2019-05-07 01:32] LABS: ACANTHOCYTES 1+ (0-0); ANISOCYTOSIS 1+ (0-0); BURR CELLS 1+; HYPOCHROMASIA 3+ (0-0); POIKILOCYTOSIS 2+ (0-0); TARGET CELLS 2+ (0-0)
[2019-05-07] MEDS: ONDANSETRON 4 MG INJ IV (03:46)
[2019-05-07] MEDS: morphine 2 MG INJ IV ×4 (03:46→20:06)
[2019-05-07 03:49] LABS: CREATINE KINASE 50 IU/L (23-200)
[2019-05-07 04:01] LABS: CK INDEX 2.2; CK-MB 1.08 ng/ml (0.0-2.4); TROPONIN-I 0.029 ng/ml (0.000-0.120)
[2019-05-07] MEDS ORDERED: LORAZEPAM 2 MG INJ IV (05:30)
[2019-05-07] MEDS: PANTOPRAZOLE 40 MG INJ IV ×2 (07:11→17:15)
[2019-05-07] MEDS: FUROSEMIDE 20 MG INJ IV (07:11)
[2019-05-07] MEDS: GABAPENTIN 100 MG CAP PO ×2 (08:11→20:58)
[2019-05-07] MEDS ORDERED: FAMOTIDINE 20 MG TAB PO (09:00)
[2019-05-07 10:47] LABS: ADD UMIC NO; UR ASCORBIC ACID NEGATIVE (NEGATIVE); UR BILIRUBIN (Dip) NEGATIVE (NEGATIVE); UR BLOOD (Dip) NEGATIVE (NEGATIVE); UR CLARITY CLEAR (CLEAR); UR COLOR STRAW (YELLOW); UR GLUCOSE (Dip) NEGATIVE (NEGATIVE); UR KETONES (Dip) NEGATIVE (NEGATIVE); UR LEUKOCYTE ESTERASE (Dip) NEGATIVE Leu/ul (NEGATIVE); UR NITRITE (Dip) NEGATIVE (NEGATIVE); UR TOTAL PROTEIN (Dip) NEGATIVE (NEGATIVE); UR UROBILINOGEN (Dip) NEGATIVE (NEGATIVE)
[2019-05-07 11:05] LABS: BARBITURATES Negative (NEGATIVE); BENZODIAZEPINES Negative (NEGATIVE); CANNABINOIDS Negative (NEGATIVE); COCAINE Negative (NEGATIVE); OPIATES Positive (NEGATIVE)
[2019-05-07 11:18] LABS: AMPHETAMINE/METHAMPHETAMINE POSITIVE (NEGATIVE)
[2019-05-07 13:09] LABS: IMMEDIATE SPIN CROSSMATCH 1 4
[2019-05-07] MEDS: LIDOCAINE/MYLANTA 40 ML BTL PO (17:14)
[2019-05-07] MEDS: SUCRALFATE (100 MG/ML) 10ML CUP GTB ×2 (17:15→20:58)
[2019-05-07 17:38] LABS: ADD MAN DIFF? NO
[2019-05-07 18:00] LABS: WHITE BLOOD COUNT 9.3 10^3/ul (4.8-10.8)
[2019-05-07 18:00] LABS: BASOPHIL # 0.1 10^3/ul (0.0-0.1); BASOPHILS % 0.6 % (0.0-2.0); EOSINOPHILS # 0.1 10^3/ul (0.0-0.5); EOSINOPHILS % 1.4 % (0.0-7.0); HEMATOCRIT 38.6 % (37.0-47.0); HEMOGLOBIN 13.3 g/dl (12.0-16.0); LYMPHOCYTES # 1.8 10^3/ul (0.8-2.9); LYMPHOCYTES % 19.5 % (15.0-51.0); MEAN CORPUSCULAR HEMOGLOBIN 29.6 pg (29.0-33.0); MEAN CORPUSCULAR HGB CONC 34.5 g/dl (32.0-37.0); MEAN PLATELET VOLUME 10.5 fl (7.4-10.4); MONOCYTE # 0.9 10^3/ul (0.3-0.9); MONOCYTES % 9.5 % (0.0-11.0); NEUTROPHIL # 6.3 10^3/ul (1.6-7.5); NUCLEATED RED BLOOD CELLS% 0.2 /100WBC (0.0-0.0); PLATELET COUNT 186 10^3/UL (140-415); RED BLOOD COUNT 4.49 10^6/ul (4.20-5.40)
[2019-05-07 18:19] LABS: CREATINE KINASE 55 IU/L (23-200)
[2019-05-07 18:21] LABS: ETHANOL < 10.0 mg/dl (0-0); LIPASE 2195 U/L (23-300)
[2019-05-07 18:24] LABS: CK INDEX 1.9; CK-MB 1.02 ng/ml (0.0-2.4); TROPONIN-I < 0.012 ng/ml (0.000-0.120)
[2019-05-07 18:25] LABS: ALANINE AMINOTRANSFERASE 25 IU/L (13-69); ALBUMIN 3.4 g/dl (3.3-4.9); ALKALINE PHOSPHATASE 102 IU/L (42-121); ANION GAP 8 (5-13); ASPARTATE AMINO TRANSFERASE 41 IU/L (15-46); BLOOD UREA NITROGEN 31 mg/dl (7-20); CALCIUM 8.7 mg/dl (8.4-10.2); CARBON DIOXIDE 20 mmol/L (21-31); CHLORIDE 108 mmol/L (97-110); CHOL/HDL RATIO 5.4 RATIO; CHOLESTEROL 173 mg/dl (100-200); CREATININE 1.02 mg/dl (0.44-1.00); Estimated GFR 57 mL/min (>60); GLUCOSE 134 mg/dl (70-220); HDL CHOLESTEROL 32 mg/dl (37-92); LDL CHOLESTEROL,CALCULATED 79 mg/dl; MAGNESIUM 1.6 mg/dl (1.7-2.5); POTASSIUM 4.4 mmol/L (3.5-5.1); SODIUM 136 mmol/L (135-144); TOTAL PROTEIN 6.8 g/dl (6.1-8.1); TRIGLYCERIDES 309 mg/dl (0-149)
[2019-05-07] MEDS: QUETIAPINE 25 MG TAB PO (20:58)
[2019-05-07] MEDS: ATORVASTATIN 20 MG TAB PO (20:58)
[2019-05-08] MEDS: PANTOPRAZOLE 40 MG INJ IV (06:00)
[2019-05-08] MEDS: SOD CHLORIDE 0.9% 0 ML IV (06:31)
[2019-05-08] MEDS: morphine 2 MG INJ IV ×2 (06:54→12:43)
[2019-05-08] MEDS: SUCRALFATE (100 MG/ML) 10ML CUP GTB ×2 (08:35→12:43)
[2019-05-08] MEDS: GABAPENTIN 100 MG CAP PO (08:36)
[2019-05-08] MEDS: SOD CHLORIDE 0.45% 1,000 ML IV (15:30)
== END 2019-05-08 16:23 | disposition home or self-care (01) | DRG 811 ==
LOC: TEL 21:43 → E/R 20:06
PROC: 30233N1 Transfusion of Nonautologous Red Blood Cells into Peripheral Vein, Percutaneous Approach (ICD-10-PCS; principal; 2019-05-07)
DX: D62 Acute posthemorrhagic anemia (principal); K85.90 Acute pancreatitis without necrosis or infection, unspecified; K92.1 Melena; K86.1 Other chronic pancreatitis; I10 Essential (primary) hypertension; I25.5 Ischemic cardiomyopathy; F17.200 Nicotine dependence, unspecified, uncomplicated; Z79.82 Long term (current) use of aspirin; E78.5 Hyperlipidemia, unspecified; Z59.0 Homelessness; F10.10 Alcohol abuse, uncomplicated; F99 Mental disorder, not otherwise specified
CPT/HCPCS: 36415; 36430; 71045; 74178; 76830; 76856; 80048; 80053; 80061; 80307; 81003; 82550; 82553; 83036; 83690; 83735; 84443; 84484; 84703; 85025; 85610; 85730; 86850; 86900; 86901; 86920; 93005; 93306; 99285-25